=== PATIENT | male | born 1985 | race Caucasian/White ===

== ENCOUNTER → 2017-01-21 | Outpatient (CLI) | payer OTHER ==
[~2017-01-21] MED LIST: ADDERALL20 MG PO; BENADRYL50 MG PO; CYCLOBENZAPRINE10 MG PO; FLEXERIL5 MG PO; HYDROCODONE BIT1 T11 PO; LOMOTIL 0.025 M1 TAB PO; MEDROL DOSEPAK4 MG PO; Motrin,Rufen800 MG PO; NAPROSYN500 MG PO; NORCO 325 MG-51 TAB PO; PREDNISONE20 MG PO; TAGAMET400 MG PO; TRAMADOL HCL50 MG PO; VALIUM10 MG PO; VICODIN 5/500 505 MG PO; VOLTAREN50 M1 PO; ZOFRAN ODT4 MG SL; ZOFRAN ODT8 MG PO
== END | disposition home or self-care (01) ==
LOC: RAD 15:28
DX: M79.641 Pain in right hand (principal)

== ENCOUNTER 2017-03-17 18:46 | Emergency (ER) | payer OTHER ==
[~2017-03-17] VITALS: Wt 86.2 kg
[2017-03-17] MEDS ORDERED: TESSALON PERLE100 M1 PO (20:15)
[2017-03-17] MEDS ORDERED: MEDROL DOSEPAK4 MG PO (20:15)
[2017-03-17] MEDS ORDERED: AUGMENTIN 875875 MG PO (20:15)
== END 2017-03-17 20:24 | disposition home or self-care (01) ==
LOC: ED 18:46
DX: J40 Bronchitis, not specified as acute or chronic (principal); H65.113 Acute and subacute allergic otitis media (mucoid) (sanguinous) (serous), bilateral; F17.200 Nicotine dependence, unspecified, uncomplicated

== ENCOUNTER 2017-10-16 13:44 | Emergency (ER) | payer OTHER ==
[~2017-10-16] VITALS: Ht 182.8 cm; Wt 99.8 kg
[~2017-10-16 13:44] MED LIST changes: +AUGMENTIN 875875 MG PO; +TESSALON PERLE100 M1 PO
[2017-10-16 15:05] LABS: BILIRUBIN NEGATIVE (NEGATIVE); BLOOD TRACE-INTACT (NEGATIVE); CLARITY CLEAR (CLEAR); COLOR YELLOW (YELLOW); GLUCOSE NEGATIVE (NEGATIVE); KETONE NEGATIVE (NEGATIVE); LEUKO ESTERASE NEGATIVE (NEGATIVE); NITRITE NEGATIVE (NEGATIVE); PH 5.5 (5.0-9.0); SPECIFIC GRAVITY <= 1.005 (1.005-1.030); UROBILINOGEN 0.2 E.U./dl (0.2-1.0)
[2017-10-16 15:23] LABS: RBC 0-2 rbc/hpf (0-2); WBC 0-2 wbc/hpf (0-5)
[2017-10-16] MEDS ORDERED: NAPROSYN500 MG PO (16:13)
[2017-10-16] MEDS ORDERED: CYCLOBENZAPRINE5 M3 PO (16:13)
== END 2017-10-16 16:18 | disposition home or self-care (01) ==
LOC: ED 13:44
PROVIDERS: Nurse Practitioner
DX: M54.5 Low back pain (principal); Z90.89 Acquired absence of other organs; Z98.890 Other specified postprocedural states